=== PATIENT | male | born 2000 | race Caucasian/White ===

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

== ENCOUNTER 2020-08-04 14:58 | Outpatient (REF) | payer MEDICAID, SELFPAY ==
[2020-08-05 15:16] LABS: COVID-19 RT-PCR UVMMC Result Negative (Negative)
== END 2020-08-04 14:59 | disposition home or self-care (01) ==
LOC: NCHCN 14:58
PROVIDERS: PCP Pediatrics; Visit Provider Physician Assistant Medical
DX: Z20.822 Contact with and (suspected) exposure to COVID-19 (principal)
CPT/HCPCS: U0003

== ENCOUNTER 2020-08-07 17:45 | Outpatient (REF) | payer MEDICAID, SELFPAY ==
[2020-08-08 19:52] LABS: COVID-19 RT-PCR UVMMC Result Negative (Negative)
== END 2020-08-07 17:46 | disposition home or self-care (01) ==
LOC: NCHCN 17:45
PROVIDERS: PCP Pediatrics; Visit Provider Physician Assistant Medical
DX: Z20.822 Contact with and (suspected) exposure to COVID-19 (principal)
CPT/HCPCS: U0003

== ENCOUNTER 2021-01-07 03:20 | Outpatient (CLI) | payer MEDICAID, SELFPAY ==
[2021-01-07 10:33] LABS: Microalb ug/mg Crea 3.6 ug/mg Cr
[2021-01-07 10:45] LABS: TSH (W/Ref FT4) 2.23 uIU/mL (0.36-3.74)
== END 2021-01-07 03:21 | disposition home or self-care (01) ==
LOC: LBO 03:20
PROVIDERS: PCP Pediatrics; Visit Provider Nurse Practitioner Pediatrics
DX: E10.9 Type 1 diabetes mellitus without complications (principal); E55.9 Vitamin D deficiency, unspecified
CPT/HCPCS: 36415; 82306; 82043; 82570; 84443

== ENCOUNTER 2021-05-26 16:47 | Outpatient (REF) | payer MEDICAID, SELFPAY ==
[2021-05-27 19:16] LABS: COVID-19 RT-PCR UVMMC Result Negative (Negative)
== END 2021-05-26 16:48 | disposition home or self-care (01) ==
LOC: NCHCN 16:47
PROVIDERS: PCP Pediatrics; Visit Provider Family Medicine
DX: Z20.822 Contact with and (suspected) exposure to COVID-19 (principal)
CPT/HCPCS: U0003

== ENCOUNTER 2021-07-14 17:14 | Outpatient (REF) | payer MEDICAID, SELFPAY | END 2021-07-14 17:15 | disposition home or self-care (01) | LOC: LBN 17:14 | PROVIDERS: PCP Pediatrics | DX: Z20.822 Contact with and (suspected) exposure to COVID-19 (principal) | CPT/HCPCS: U0003 ==

== ENCOUNTER 2022-11-10 18:08 | Outpatient (REF) | payer MEDICAID, SELFPAY ==
[2022-11-10 17:51] LABS: Bilirubin Negative (Negative); Blood Negative (Negative); Clarity Clear (Clear); Glucose Negative (Negative); Ketones Negative (Negative); Leukocyte Esterase Negative (Negative); Nitrite Negative (Negative); Specific Gravity 1.025 (1.005-1.025); Urobilinogen 0.2 mg/dL (Up to 0.2); pH 6.5 (5-8)
== END 2022-11-10 18:09 | disposition home or self-care (01) ==
LOC: LBN 18:08
PROVIDERS: PCP Pediatrics; Visit Provider Pediatrics
DX: E10.9 Type 1 diabetes mellitus without complications (principal)
CPT/HCPCS: 81003

== ENCOUNTER 2023-09-08 05:21 | Outpatient (CLI) | payer MEDICAID, SELFPAY ==
[2023-09-08 12:00] LABS: Vitamin D 25 Total 23.8 ng/mL (30-100)
[2023-09-08 12:10] LABS: Hemoglobin A1C 6.8 % (<5.7)
== END 2023-09-08 05:22 | disposition home or self-care (01) ==
PROVIDERS: PCP Pediatrics; Visit Provider Nurse Practitioner Family
DX: E10.9 Type 1 diabetes mellitus without complications (principal); E55.9 Vitamin D deficiency, unspecified
CPT/HCPCS: 36415; 82306; 83036

== ENCOUNTER 2023-12-18 17:38 | Outpatient (REF) | payer MEDICAID, SELFPAY | END 2023-12-18 17:39 | disposition home or self-care (01) | LOC: LBN 17:38 | PROVIDERS: PCP Pediatrics; Visit Provider Nurse Practitioner Family | DX: J02.9 Acute pharyngitis, unspecified (principal); R68.89 Other general symptoms and signs; J06.9 Acute upper respiratory infection, unspecified | CPT/HCPCS: 87070 ==

== ENCOUNTER 2024-02-13 05:01 | Outpatient (CLI) | payer MEDICAID, SELFPAY ==
[2024-02-13 15:06] LABS: Abs Immature Grans 0.02 10^3/uL (0.0-0.06); Absolute Basophil Count 0.03 10^3/uL (0.0-0.2); Absolute Eosinophil Count 0.51 10^3/uL (0.0-0.7); Absolute Lymphocyte Count 1.83 10^3/uL (1.2-3.4); Absolute Neutrophil Count 4.82 10^3/uL (1.2-6.7); Basophils % 0.4 %; Eosinophils % 6.4 %; HCT 47.9 % (40.0-50.0); HGB 16.3 g/dL (13.5-17.5); Immature Grans % 0.3 %; Lymphocytes % 23.1 %; MCH 28.2 pg (27.0-33.0); MCV 83 fL (80-95); MPV 10.8 fL (8.0-11.0); Monocytes % 8.8 %; Platelet Count 215 10^3/uL (130-400); RBC 5.79 10^6/uL (4.36-5.78); RDW 11.9 % (11.8-14.1); RDW-SD 36.1 fL; WBC 7.91 10^3/uL (4.4-10.8)
[2024-02-13 17:05] LABS: COMMENT (LAB VIEW ONLY) 18.11 mg/dL; Microalb ug/mg Crea 12.1 ug/mg Cr
[2024-02-13 17:12] LABS: ALT 25 U/L (16-63); AST 18 U/L (15-37); Albumin 4.3 g/dL (3.4-5.0); Alkaline Phosphatase 101 U/L (46-116); Anion Gap 7.2 mmol/L (3-11); BUN 11 mg/dL (7-18); Bilirubin, Total 0.95 mg/dL (0.2-1.0); CO2 30.8 mmol/L (21.0-32.0); CREATININE 0.8 mg/dL (0.70-1.30); Calcium 9.5 mg/dL (8.5-10.1); Chloride 103 mmol/L (98-107); Estimated GFR 127.53 (mL/min/1.73m2); Glucose 110 mg/dL (74-106); Sodium 141 mmol/L (136-145); TSH (W/Ref FT4) 1.18 uIU/mL (0.36-3.74); Total Protein 8.2 g/dL (6.4-8.2)
[2024-02-13 17:18] LABS: Calculated LDL 83 mg/dL (<100); Cholesterol 146 mg/dL (<200); HDL Cholesterol 54 mg/dL (40-60); Triglyceride 48 mg/dL (<150); Vitamin D 25 Total 25.3 ng/mL (30-100)
[2024-02-13 17:29] LABS: C-Reactive Protein < 0.50 mg/dL (<or=0.5)
[2024-02-13 17:55] LABS: Hemoglobin A1C 6.9 % (<5.7)
[2024-02-16 12:12] LABS: IgA 278 mg/dL (85-499); Interpretation (See Note); Tissue Transglutaminase IgA <4.0 CU (<20.0)
== END 2024-02-13 05:02 | disposition home or self-care (01) ==
LOC: LBO 05:01
PROVIDERS: Visit Provider Pediatrics
DX: R10.9 Unspecified abdominal pain (principal); G89.29 Other chronic pain; R19.5 Other fecal abnormalities; E10.9 Type 1 diabetes mellitus without complications; E55.9 Vitamin D deficiency, unspecified
CPT/HCPCS: 36415; 80053; 80061; 82306; 82784; 83516; 82043; 82570; 83036; 84443; 85025; 86140

== ENCOUNTER 2024-11-13 04:17 | Outpatient (CLI) | payer MEDICAID, SELFPAY ==
[2024-11-13 15:57] LABS: Glucose 250 mg/dL (Negative)
[2024-11-13 17:29] LABS: Hemoglobin A1C 6.6 % (<5.7)
[2024-11-13 18:38] LABS: TSH (W/Ref FT4) 1.57 uIU/mL (0.36-3.74)
[2024-11-14 19:45] LABS: Vitamin D 25 Total 28 ng/mL (30-100)
== END 2024-11-13 04:18 | disposition home or self-care (01) ==
LOC: LBO 04:17
PROVIDERS: PCP Nurse Practitioner Family; Visit Provider Nurse Practitioner Family
DX: E10.9 Type 1 diabetes mellitus without complications (principal); E55.9 Vitamin D deficiency, unspecified
CPT/HCPCS: 36415; 82306; 81003; 83036; 84443